=== PATIENT | female | born 1990 | race Caucasian/White ===

== ENCOUNTER 2016-10-11 11:36 | Emergency (ER) | payer BC ==
[~2016-10-11] VITALS: Wt 65.0 kg
[~2016-10-11 11:36] MED LIST: OMEP20CA9 PO
[2016-10-11] MEDS ORDERED: ONDANSETRON 4 MG INJ IV STA (12:31)
[2016-10-11] MEDS ORDERED: SOD CHLORIDE 0.9% 1,000 ML IV STA (12:31)
[2016-10-11 12:32] LABS: ADD UMIC NO; URINE BILIRUBIN (Dip) NEGATIVE (NEGATIVE); URINE BLOOD (Dip) NEGATIVE (NEGATIVE); URINE COLOR LT. YELLOW (YELLOW); URINE GLUCOSE (Dip) NEGATIVE (NEGATIVE); URINE KETONES (Dip) NEGATIVE (NEGATIVE); URINE LEUKOCYTE ESTERASE (Dip) NEGATIVE (NEGATIVE); URINE NITRITE (Dip) NEGATIVE (NEGATIVE); URINE TOTAL PROTEIN (Dip) NEGATIVE (NEGATIVE); URINE UROBILINOGEN (Dip) 0.2 E.U./dL (0.1-1.0)
[2016-10-11 12:58] LABS: BASOPHILS % 0.2 % (0.0-2.0); HEMATOCRIT 41.4 % (37.0-47.0); HEMOGLOBIN 13.8 g/dl (12.0-16.0); LYMPHOCYTES # 0.7 10^3/ul (0.8-2.9); MEAN CORPUSCULAR HEMOGLOBIN 31.4 pg (29.0-33.0); MEAN CORPUSCULAR HGB CONC 33.3 g/dl (32.0-37.0); MEAN CORPUSCULAR VOLUME 94.3 fl (82.0-101.0); MEAN PLATELET VOLUME 9.5 fl (7.4-10.4); MONOCYTE # 0.3 10^3/ul (0.3-0.9); MONOCYTES % 8.4 % (0.0-11.0); NEUTROPHIL # 2.8 10^3/ul (1.6-7.5); NEUTROPHILS % 72.4 % (39.0-77.0); PLATELET COUNT 176 10^3/UL (140-440); RED BLOOD COUNT 4.39 10^6/ul (4.20-5.40); UNCORRECTED WBC 3.8 10^3/ul (4.8-10.8); WHITE BLOOD COUNT 3.8 10^3/ul (4.8-10.8)
[2016-10-11 13:01] LABS: CONDITION 1
[2016-10-11 13:05] LABS: ALBUMIN 4.1 g/dl (3.3-4.9)
[2016-10-11 13:06] LABS: POTASSIUM 3.9 mmol/L (3.5-5.1)
[2016-10-11 13:07] LABS: CREATININE 0.59 mg/dl (0.44-1.00)
[2016-10-11 13:08] LABS: BILIRUBIN,INDIRECT 0.3 mg/dl (0-1.1); BILIRUBIN,TOTAL 0.3 mg/dl (0.2-1.3); CALCIUM 8.7 mg/dl (8.4-10.2); TOTAL PROTEIN 7.5 g/dl (6.1-8.1)
[2016-10-11 13:11] LABS: ALBUMIN/GLOBULIN RATIO 1.2
--- NOTE | 2016-10-11 14:05 | RADRPT ---
PROCEDURE: Pelvic ultrasound. CLINICAL INDICATION: Pelvic pain TECHNIQUE: Guardado scale, color doppler, spectral doppler ultrasound of the pelvis was performed with transabdominal and transvaginal transducers. COMPARISON: CT abdomen pelvis 02/06/2016 FINDINGS: Uterus: Position: Anteverted. Normal myometrial echogenicity. Normal appearance of the endometrium. Proliferative phase. Ovaries: Normal sized ovaries with preserved blood flow. No adnexal masses. 1.8 cm dominant follicle of the right ovary. Free fluid: None. Measurements: Endometrium: 0.7 cm Uterus: 7.7 x 3.0 x 3.8 cm Right ovary: 3.6 x 2.2 x 3.0 cm Left ovary: 2.6 x 1.1 x 1.7 cm IMPRESSION: 1.7 cm dominant follicle left ovary. Normal examination. RPTAT: PP .Jasson Liriano MD, Date Time Electronically viewed and signed by .Jasson Liriano MD, on 10/11/2016 14:05 .B/
--- NOTE | 2016-10-11 14:45 | RADRPT ---
PROCEDURE: XR Chest. CLINICAL INDICATION: cough TECHNIQUE: Single frontal view of the chest was obtained COMPARISON: None FINDINGS: The heart and mediastinum are within normal limits. The lungs are clear. There is no pleural effusion or pneumothorax. RPTAT: AA IMPRESSION: No acute disease. .Sourav Carmichael MD, Date Time Electronically viewed and signed by .Sourav Carmichael MD, on 10/11/2016 14:45 .S/
[2016-10-11] MEDS ORDERED: CETI10CA PO (15:20)
[2016-10-11] MEDS ORDERED: IBUP-1542 PO (15:20)
[2016-10-11 15:31] VITALS: BP 132/70; PULSE 84; RESP 19; TEMP 98.6
--- NOTE | 2016-10-11 15:34 | ERD ---
ER Documentation Chief Complaint Date/Time DATE: 10/11/16 TIME: 15:30 Chief Complaint pelvic pain for the past few days. no dysuria. frequency noted per pt HPI 26-year-old female with no significant past medical history presents the ED complaining of intermittent pelvic pain that started 1 week ago. States that she has the urgency to urinate. Reports that she has had to go 5 times in the within the last 1 hour. That she feels weak and dizzy. Denies any vaginal bleeding, vaginal discharge. Ports that she is nauseous but denies any vomiting , diarrhea, chest pain, shortness of breath. States that her last menses was 1 week ago. ROS All systems reviewed and are negative except as per history of present illness. Medications Home Meds Active Scripts Ibuprofen* (Motrin*) 600 Mg Tab, 600 MG PO Q6, #30 TAB Prov:SHAYLA PINTO PA-C 10/11/16 Cetirizine Hcl* (Zyrtec*) 10 Mg Capsule, 10 MG PO DAILY, #10 TAB.CHEW Prov:SHAYLA PINTO PA-C 10/11/16 Omeprazole* (Prilosec*) 20 Mg Capsule.dr, 20 MG PO BID for 10 Days, CAP Prov:AUGUSTIN HARPER NP 02/06/16 Allergies Allergies: Coded Allergies: codeine (Verified Allergy, Unknown, HIVES, 02/21/15) PMhx/Soc History of Surgery: No Anesthesia Reaction: No Hx Neurological Disorder: No Hx Respiratory Disorders: No Hx Cardiac Disorders: No Hx Psychiatric Problems: No Hx Miscellaneous Medical Probl: Yes (multiple sclerosis dx 2 yrs ago) Hx Alcohol Use: Yes (occassional) Hx Substance Use: No Hx Tobacco Use: Yes Smoking Status: Never smoker Physical Exam Vitals Vital Signs Date Time Temp Pulse Resp B/P Pulse Ox O2 Delivery O2 Flow Rate FiO2 10/11/16 11:43 99.0 75 19 140/64 99 Physical Exam Const: [id number], well-nourished. In no acute distress. Head: Atraumatic, normocephalic Eyes: Normal Conjunctiva without injection. No purulent discharge. ENT: Normal external ear, nose. Moist oropharynx without tonsillar exudates. Non -erythematous pharynx. Uvula midline. No drooling. No trismus. Neck: No cervical midline tenderness. Full range of motion. No meningismus. No cervical lymphadenopathy. No JVD. Resp: Clear to auscultation bilaterally. No wheezing, rhonchi, rales, or crackles. No accessory muscle use. No retractions. Cardio: Regular rate and rhythm. No murmurs, rubs or gallops. Abd: Soft, slight pelvic tenderness, non distended. Normal bowel sounds. No palpable masses. No rebound tenderness. No guarding. Negative McBurney's point. Negative psoas sign. Negative obturator sign. Skin: No petechiae or rashes Back: No midline tenderness. No CVA tenderness. Ext: No cyanosis, or edema. Neur: Awake and alert. Normal gait. Normal coordination. Psych: Normal Mood and Affect Result Diagram: 10/11/16 1240 10/11/16 1240 Results 24 hrs Laboratory Tests Test 10/11/16 12:16 10/11/16 12:40 Urine Bilirubin NEGATIVE Urine Clarity CLEAR Urine Color LT. YELLOW Urine Glucose NEGATIVE% Urine Hemoglobin NEGATIVE Urine Ketones NEGATIVE Urine Leukocyte Esterase NEGATIVE Urine Nitrite NEGATIVE Urine Specific [place] 1.015 Urine Total Protein NEGATIVE Urine Urobilinogen 0.2 E.U./dL Urine pH 7.0 Alanine Aminotransferase (ALT/SGPT) 34IU/L Albumin 4.1g/dl Albumin/Globulin Ratio 1.20 Alkaline Phosphatase 58IU/L Anion Gap 12 Aspartate Amino Transf (AST/SGOT) 24IU/L Basophils # 0.010^3/ul Basophils % 0.2% Blood Urea Nitrogen 9mg/dl Calcium Level 8.7mg/dl Carbon Dioxide Level 30mmol/L Chloride Level 102mmol/L Creatinine 0.59mg/dl Direct Bilirubin 0.00mg/dl Eosinophils # 0.010^3/ul Eosinophils % 1.0% Globulin 3.40g/dl Glucose Level 82mg/dl Hematocrit 41.4% Hemoglobin 13.8g/dl Indirect Bilirubin 0.3mg/dl Lipase 68U/L Lymphocytes # 0.710^3/ul Lymphocytes % 18.0% Mean Corpuscular Hemoglobin 31.4pg Mean Corpuscular Hemoglobin Concent 33.3g/dl Mean Corpuscular Volume 94.3fl Mean Platelet Volume 9.5fl Monocytes # 0.310^3/ul Monocytes % 8.4% Neutrophils # 2.810^3/ul Neutrophils % 72.4% Nucleated Red Blood Cells # 0.010^3/ul Nucleated Red Blood Cells % 0.0/100WBC Platelet Count 27057^3/UL Potassium Level 3.9mmol/L Red Blood Count 4.3910^6/ul Red Cell Distribution Width 13.0% Sodium Level 140mmol/L Total Bilirubin 0.3mg/dl Total Protein 7.5g/dl White Blood Count 3.810^3/ul Current Medications Medications (Trade) Dose Ordered Sig/Rhona Route PRN Reason Start Time Stop Time Status Last Admin Dose Admin Sodium Chloride (NS) 1,000 ml @ 1,000 mls/hr Q1H STAT IV 10/11/16 12:31 10/11/16 13:30 DC 10/11/16 12:45 Ondansetron HCl (Zofran Inj) 4 mg ONCE STAT IV 10/11/16 12:31 10/11/16 12:34 DC 10/11/16 12:45 Procedures/MDM 26-year-old female with no significant past medical history presents to the ED complaining of pelvic pain, weakness, dizziness, urgency to urinate. Patient is afebrile and nontoxic-appearing. Patient has normal vital signs. An ultrasound, beta-hCG, CBC, type and RH, UA was ordered to evaluate patient. A CBC, CMP, UA, urine , 1 L of normal saline, EKG, chest x-ray, pelvic ultrasound was ordered to further evaluate and treat patient. CBC: No leukocytosis. No e/o of systemic infection. No e/o anemia. CMP: No e/o severe acidosis, alkalosis, renal failure, diabetic ketoacidosis, liver disease Lipase within normal limits. Urine: No leukocyte esterase, no nitrites, no hematuria. Urine negative. EKG reviewed and interpreted by Dr. Keyes Rate/Rhythm: [62 bpm, Normal Sinus Rhythm] No ectopy, no ST elevations, normal axis. QRS, ST, T-waves: [No changes consistent w/ acute ischemia] Impression: [No evidence of ischemia or arrhythmia] Low suspicion for acute myocardial infarction, pneumothorax, pneumonia, cardiac tamponade, pulmonary embolism, AAA, aortic dissection, Boerhaave's syndrome, cardiac dysrhythmias,meningitis, intracranial bleed, seizure, stroke, TIA or other emergent conditions. PROCEDURE: XR Chest. CLINICAL INDICATION: cough TECHNIQUE: Single frontal view of the chest was obtained COMPARISON: None FINDINGS: The heart and mediastinum are within normal limits. The lungs are clear. There is no pleural effusion or pneumothorax. RPTAT: AA IMPRESSION: No acute disease. PROCEDURE: Pelvic ultrasound. CLINICAL INDICATION: Pelvic pain TECHNIQUE: Guardado scale, color doppler, spectral doppler ultrasound of the pelvis was performed with transabdominal and transvaginal transducers. COMPARISON: CT abdomen pelvis 02/06/2016 FINDINGS: Uterus: Position: Anteverted. Normal myometrial echogenicity. Normal appearance of the endometrium. Proliferative phase. Ovaries: Normal sized ovaries with preserved blood flow. No adnexal masses. 1.8 cm dominant follicle of the right ovary. Free fluid: None. Measurements: Endometrium: 0.7 cm Uterus: 7.7 x 3.0 x 3.8 cm Right ovary: 3.6 x 2.2 x 3.0 cm Left ovary: 2.6 x 1.1 x 1.7 cm IMPRESSION: 1.7 cm dominant follicle left ovary. Normal examination. Patient's bleeding symptoms have stabilized while in the department. Patient has a left ovarian cyst. Low suspicion for symptomatic anemia, ectopic , sepsis, PID, appendicitis, ovarian torsion, tubo-ovarian abscess, surgical abdomen, or other emergent conditions. Patient was educated that there is a risk for threatened . This patient presents to the ED with symptoms consistent with a viral acute upper respiratory infection. Patient is afebrile and has normal vital signs. Patient's physical exam include lungs which were clear to auscultation and a normal pulse oximetry. There is a low suspicion for a croup, pneumonia, pneumothorax, cardiac tamponade, peritonsillar abscess, foreign body aspiration , mastoiditis, retropharyngeal abscess, epiglottitis, meningitis, sepsis or other emergent conditions. Mother was instructed to bring patient back to the ED for any new or worsening symptoms. They should otherwise follow up with the primary care provider within 1-2 days. The parent's questions were answered at the time of discharge. Parent understood and agreed with discharge management. Discharge medications: Ibuprofen, Zyrtec Patient to follow up with SALES DIRECTOR in 2 days for further evaluation and treatment. Patient is to return sooner to the ED for any worsening symptoms. Patient's questions were answered. Patient understood and agreed with discharge plan. Departure Diagnosis: Primary Impression: Ovarian cyst Laterality: left Qualified Code: N83.202 - Cyst of left ovary Additional Impressions: URI (upper respiratory infection) URI type: unspecified URI Qualified Code: J06.9 - Upper respiratory tract infection, unspecified type Urinary urgency Condition: Stable Patient Instructions: Ovarian Cyst, Uri, Viral, No Abx (Adult), Urine Culture Referrals: [facility] YOU HAVE RECEIVED A MEDICAL SCREENING EXAM AND THE RESULTS INDICATE THAT YOU DO NOT HAVE A CONDITION THAT REQUIRES URGENT TREATMENT IN THE EMERGENCY DEPARTMENT. FURTHER EVALUATION AND TREATMENT OF YOUR CONDITION CAN WAIT UNTIL YOU ARE SEEN IN YOUR DOCTORS OFFICE WITHIN THE NEXT 1-2 DAYS. IT IS YOUR RESPONSIBILITY TO MAKE AN APPOINTMENT FOR FOLOW-UP CARE. IF YOU HAVE A PRIMARY DOCTOR --you should call your primary doctor and schedule an appointment IF YOU DO NOT HAVE A PRIMARY DOCTOR YOU CAN CALL OUR PHYSICIAN REFERRAL HOTLINE AT IF YOU CAN NOT AFFORD TO SEE A PHYSICIAN YOU CAN CHOSE FROM THE FOLLOWING [facility] [address] [facility] [address] [facility] [address] [facility] [facility] [address] [facility]. [facility] [address] [facility] [facility] [address] [facility]. [facility] YOU HAVE RECEIVED A MEDICAL SCREENING EXAM AND THE RESULTS INDICATE THAT YOU DO NOT HAVE A CONDITION THAT REQUIRES URGENT TREATMENT IN THE EMERGENCY DEPARTMENT. FURTHER EVALUATION AND TREATMENT OF YOUR CONDITION CAN WAIT UNTIL YOU ARE SEEN IN YOUR DOCTORS OFFICE WITHIN THE NEXT 1-2 DAYS. IT IS YOUR RESPONSIBILITY TO MAKE AN APPOINTMENT FOR FOLOW-UP CARE. IF YOU HAVE A PRIMARY DOCTOR --you should call your primary doctor and schedule and appointment IF YOU DO NOT HAVE A PRIMARY DOCTOR YOU CAN CALL OUR PHYSICIAN REFERRAL HOTLINE AT . IF YOU CAN NOT AFFORD TO SEE A PHYSICIAN YOU CAN CHOSE FROM THE FOLLOWING [facility] INSTITUTIONS: [facility] [address] [place] [address] [facility] [address] [place] [address] [facility] [address] [place] [address] SALES [place] [address] [facility] [address] [place] [address] OFFICE FAX , [facility] [address] [place] [address] [facility] [address] [place] [address] [address] PATRICIA, [facility] [address] [facility], [address], [facility] [address] [address] [facility] [address] [facility] [place], [place] [address] [facility] [address] [place] [address] [address] [facility] [id number] - [address] [facility], [place] [address] [address] [address] [facility]. [address], [place] [address] [address] MAGALLANES [facility] [address] [place], [place] [id number] [facility] Hours: 8:00 am - 5:00 pm Additional Instructions: FOLLOW UP WITH YOUR SALES DIRECTOR and urologist in 2-3 days. Return to this facility if you are not improving as expected. SHAYLA PINTO PA-C Oct 11, 2016 15:34
== END 2016-10-11 15:35 | disposition home or self-care (01) ==
LOC: FTE 11:36
DX: N83.202 Unspecified ovarian cyst, left side (principal); J06.9 Acute upper respiratory infection, unspecified; R39.15 Urgency of urination; Z72.0 Tobacco use
CPT/HCPCS: 36415; 71010; 76830; 76856; 80053; 81003; 83690; 85025; 96374; 99285; J2405; J7030; 93005

== ENCOUNTER 2017-01-23 21:12 | Emergency (ER) | payer BC ==
[~2017-01-23] VITALS: Ht 160 cm; Wt 75.0 kg
[~2017-01-23 21:12] MED LIST changes: +CETI10CA PO; +IBUP-1542 PO
[2017-01-23 21:14] VITALS: Ht 160 cm; Wt 75.0 kg
[2017-01-23] MEDS ORDERED: SULF1TAB31 PO (22:24)
[2017-01-23] MEDS ORDERED: PHEN-538 PO (22:24)
--- NOTE | 2017-01-23 22:26 | ERD ---
ER Documentation Chief Complaint Date/Time DATE: 01/23/17 TIME: 22:25 Chief Complaint BURNING WITH URINATION X 4 DAYS + FREQUENCY HPI This is a 26-year-old female complains of dysuria, urinary frequency for 4 days. She says that she urinates it garcia the entire time she is urinating. No back pain no fever no blood in her urine no abdominal pain no nausea vomiting or diarrhea. Her menstrual cycle just finished 3 days ago she said was normal for the most part but a little more heavy than usual ROS All systems reviewed and are negative except as per history of present illness. Medications Home Meds Active Scripts Phenazopyridine Hcl* (Pyridium*) 200 Mg Tab, 200 MG PO TID Y for URINARY PAIN, # 6 TAB Prov:SHAYLEE LANGES A. DO 01/23/17 Sulfamethoxazole/Trimethoprim* (Bactrim Ds* Tablet) 1 Each Tablet, 1 TAB PO BID , #14 TAB Prov:LEKKOSAPOSTOLOS A. DO 01/23/17 Ibuprofen* (Motrin*) 600 Mg Tab, 600 MG PO Q6, #30 TAB Prov:SHAYLA PINTO PA-C 10/11/16 Cetirizine Hcl* (Zyrtec*) 10 Mg Capsule, 10 MG PO DAILY, #10 TAB.CHEW Prov:SHAYLA PINTO PA-C 10/11/16 Omeprazole* (Prilosec*) 20 Mg Capsule.dr, 20 MG PO BID for 10 Days, CAP Prov:AUGUSTIN HARPER NP 02/06/16 Allergies Allergies: Coded Allergies: codeine (Verified Allergy, Unknown, HIVES, 02/21/15) PMhx/Soc History of Surgery: No Anesthesia Reaction: No Hx Neurological Disorder: No Hx Respiratory Disorders: No Hx Cardiac Disorders: No Hx Psychiatric Problems: No Hx Miscellaneous Medical Probl: Yes (multiple sclerosis dx 2 yrs ago) Hx Alcohol Use: Yes (occassional) Hx Substance Use: No Hx Tobacco Use: Yes Smoking Status: Current every day smoker FmHx Family History: No coronary disease Physical Exam Vitals Vital Signs Date Time Temp Pulse Resp B/P Pulse Ox O2 Delivery O2 Flow Rate FiO2 01/23/17 21:14 98.3 82 16 113/59 96 Physical Exam Const: Well-developed, well-nourished Head: Atraumatic, normocephalic Eyes: Normal Conjunctiva, PERRLA, EOMI, normal sclera, no nystagmus ENT: Normal External Ears, Nose and Mouth, moist mucus membranes. Neck: Full range of motion. No meningismus, no lymphadenopathy. Resp: Clear to auscultation bilaterally, no wheezing, rhonchi, rales Cardio: Regular rate and rhythm, no murmurs, S1 S2 present Abd: Soft, non tender x 4, non distended. Normal bowel sounds, no guarding or rebound, no pulsitile abdominal masses or bruits Skin: No petechiae or rashes, no ecchymosis , no maculopapular rash Back: No midline or flank tenderness Ext: No cyanosis, or edema, FROM x 4, normal inspection, neurovascularly intact x 4 Neur: Awake and alert, STR 5/5 x 4, sensation intact x 4, no focal findings, cerebellum intact Psych: Normal Mood and Affect Procedures/MDM Treat for UTI with Bactrim and Pyridium Departure Diagnosis: Primary Impression: Dysuria Condition: Stable Patient Instructions: Dysuria Referrals: MARIA INES KYLE (PCP) SOCORRO LANGE DO January 23, 2017 22:26
[2017-01-23] MEDS ORDERED: IBUPROFEN 800 MG TAB PO ONE (22:46)
== END 2017-01-23 22:49 | disposition home or self-care (01) ==
LOC: FTE 21:12
DX: R30.0 Dysuria (principal); F17.210 Nicotine dependence, cigarettes, uncomplicated
CPT/HCPCS: 99283; Z7610

== ENCOUNTER 2018-05-13 10:27 | Emergency (ER) | END 2018-05-13 13:42 | disposition home or self-care (01) ==

== ENCOUNTER 2018-07-29 12:55 | Emergency (ER) | END 2018-07-29 16:55 | disposition home or self-care (01) ==

== ENCOUNTER 2018-08-24 08:51 | Emergency (ER) | END 2018-08-24 11:15 | disposition home or self-care (01) ==